=== PATIENT | male | born 1980 | race Caucasian/White ===

== ENCOUNTER 2017-02-09 11:46 | Emergency (ER) | payer OTHER ==
[2017-02-09 11:58] VITALS: BP 128/74
--- NOTE | 2017-02-09 12:07 | UC ---
Ear Complaint HPI - HPI Summary HPI Summary: Pt presents with right ear muffled. He tells me that for the past 1-1.5 weeks he has had sinus symptoms and a dry cough. Over the last 2 days he has noticed his right ear becoming more muffled and mildly painful. He denies fever, chills , SOB, ST, chest pain, abdominal pain, N/V/d/C - History of Current Complaint Chief Complaint: UCEar Stated Complaint: EAR PAIN Time Seen by Provider: 02/09/17 12:06 Hx Obtained From: Patient Onset/Duration: Gradual Onset Severity Initially: Mild Severity Currently: Mild - Allergies/Home Medications Allergies/Adverse Reactions: Allergies Allergy/AdvReac Type Severity Reaction Status Date / Time No Known Allergies Allergy Verified 02/09/17 11:59 PMH/Surg Hx/FS Hx/Imm Hx Previously Healthy: Yes - Surgical History Surgical History: Yes Surgery Procedure, Year, and Place: ear tubes, tonsils - Family History Known Family History: Positive: None - Social History Occupation: Employed Full-time Lives: With Family Alcohol Use: Occasionally Alcohol Amount: 2 times a week Substance Use Type: None Smoking Status (MU): Never Smoked Tobacco - Immunization History Most Recent Tetanus Shot: 03/2012 Review of Systems Constitutional: Negative Skin: Negative Eyes: Negative ENT: Ear Ache, Sinus Congestion Respiratory: Cough Cardiovascular: Negative Gastrointestinal: Negative All Other Systems Reviewed And Are Negative: Yes Physical Exam Triage Information Reviewed: Yes Appearance: Well-Appearing, Well-Nourished Vital Signs: Initial Vital Signs Temp 97.5 F 02/09/17 11:55 Pulse 70 02/09/17 11:55 Resp 16 02/09/17 11:55 BP 128/74 02/09/17 11:55 Pulse Ox 100 02/09/17 11:55 Vital Signs Reviewed: Yes Eyes: Positive: Conjunctiva Clear. Negative: Conjunctiva Inflamed, Discharge ENT: Positive: Pharynx normal, Nasal congestion, TMs normal, Uvula midline, Other - Whisper test muffled in right ear compared to left. Right ear canal with erythema and mild purulent discharge. No edema or facial swelling. Auricle and tragus NTTP.. Negative: Pharyngeal erythema, TM bulging, TM dull, TM red, Tonsillar swelling, Tonsillar exudate, Hoarse voice, Sinus tenderness Neck: Positive: Supple, Nontender, No Lymphadenopathy Respiratory: Positive: Chest non-tender, Lungs clear, Normal breath sounds, No respiratory distress, No accessory muscle use Cardiovascular: Positive: RRR, No Murmur, Pulses Normal Neurological: Positive: Alert Psychological: Positive: Age Appropriate Behavior Skin: Negative: rashes Ear Complaint Course/Dx - Course Course Of Treatment: Otitis externa - Cipro otic BID. Cough and sinusitis - likely viral and pt reports they are improving - Differential Dx/Diagnosis Differential Diagnosis/HQI/PQRI: Cerumen Impaction, Foreign Body, Otitis Externa , Otitis Media, Perforated TM, Trauma, URI Provider Diagnoses: Otitis externa right ear. Cough. Sinusitis Discharge - Discharge Plan Condition: Stable Disposition: HOME Prescriptions: Ciprofloxacin HCl (Otic) [Ciprofloxacin 0.2% EAR DROPS] 0.2 % RIGHT EAR BID #1 bottle Patient Education Materials: Otitis Externa (ED) Referrals: Anju Mantilla MD [Primary Care Provider] - Additional Instructions: If you develop a fever, SOB, chest pain, new or worsening symptoms - please call your PCP or go to the ED. 1) Cipro ear drops. One drop to right ear TWICE a day for 5 days.
== END 2017-02-09 12:20 | disposition home or self-care (01) ==
LOC: UCEAST 11:46
DX: H60.91 Unspecified otitis externa, right ear (principal); R05 Cough; J32.9 Chronic sinusitis, unspecified
CPT/HCPCS: 99202; G0463

== ENCOUNTER 2017-02-19 16:47 | Emergency (ER) | payer OTHER ==
[2017-02-19 16:56] VITALS: BP 129/86
--- NOTE | 2017-02-19 17:33 | UC ---
Ear Complaint HPI - HPI Summary HPI Summary: Patient presents with an unremarkable past medical history. He presents with complaints of right ear pain, and a sensation that he has his hand covering his ear, and left sided throat pain. He states he was seen 02.09 and RX ear drops he states he has used all of them and no improvement. He denies any injury, trauma, canal drainage, headache, fever, or chills. He states he is able to swallow his own secretions, speak, eat and drink. - History of Current Complaint Chief Complaint: UCEar Stated Complaint: ear ache, and sore throat Time Seen by Provider: 02/19/17 17:12 Hx Obtained From: Patient Onset/Duration: Gradual Onset, Lasting Weeks Severity Initially: Mild Severity Currently: Moderate Aggravating Factors: Nothing Associated Signs/Symptoms: Positive: URI Symptoms - Allergies/Home Medications Allergies/Adverse Reactions: Allergies Allergy/AdvReac Type Severity Reaction Status Date / Time No Known Allergies Allergy Verified 02/19/17 16:56 PMH/Surg Hx/FS Hx/Imm Hx Previously Healthy: Yes - Surgical History Surgical History: Yes Surgery Procedure, Year, and Place: ear tubes, tonsils - Family History Known Family History: Positive: None - Social History Occupation: Employed Full-time Lives: Alone Alcohol Use: None Alcohol Amount: 2 times a week Substance Use Type: None Smoking Status (MU): Never Smoked Tobacco - Immunization History Most Recent Influenza Vaccination: declined Most Recent Tetanus Shot: 03/2012 Review of Systems Constitutional: Negative Skin: Negative Eyes: Negative ENT: Sore Throat, Ear Ache Respiratory: Negative Cardiovascular: Negative Gastrointestinal: Negative Genitourinary: Negative Motor: Negative Neurovascular: Negative Musculoskeletal: Negative Neurological: Negative Psychological: Negative Is Patient Immunocompromised?: No All Other Systems Reviewed And Are Negative: Yes Physical Exam Triage Information Reviewed: Yes Appearance: Well-Appearing Vital Signs: Initial Vital Signs Temp 97.7 F 02/19/17 16:51 Pulse 64 02/19/17 16:51 Resp 20 02/19/17 16:51 BP 129/86 02/19/17 16:51 Pulse Ox 100 02/19/17 16:51 Vital Signs Reviewed: Yes Eye Exam: Normal ENT Exam: Normal ENT: Positive: TM bulging, TM dull, TM red Neck exam: Normal Neck: Positive: 1 Respiratory Exam: Normal Cardiovascular Exam: Normal Abdominal Exam: Normal Neurological Exam: Normal Skin Exam: Normal Ear Complaint Course/Dx - Course Course Of Treatment: Patient presents with an unremarkable past medial history. He has had persisent complaints of right ear with decreased hearing. He has completed a course of antibiotics, and no improvement. He denies any canal drainage, or ear pain. He is going to be treated with oral antibiotics, and I recommend that he follow up with ENT. Clinical findings reveal erythma, with dull light cone reflex findings consistent with otitis media. He verbalized understanding of and in agreement with the discharge plan. - Differential Dx/Diagnosis Differential Diagnosis/HQI/PQRI: Otitis Media Provider Diagnoses: otitis media Discharge - Discharge Plan Condition: Stable Disposition: HOME Prescriptions: Amoxicillin/Clavulanate TAB* [Augmentin TAB 875*] 875 mg PO BID #20 tab Patient Education Materials: Otitis Media (ED) Referrals: Anju Mantilla MD [Primary Care Provider] - Joey Benavidez MD [Medical Doctor] -
== END 2017-02-19 17:28 | disposition home or self-care (01) ==
LOC: UCEAST 16:47
DX: H66.91 Otitis media, unspecified, right ear (principal); R07.0 Pain in throat
CPT/HCPCS: 99212; G0463

== ENCOUNTER 2017-10-31 12:05 | Emergency (ER) | payer OTHER ==
[2017-10-31 12:41] VITALS: BP 122/71
[2017-10-31] MEDS ORDERED: Acetaminophen TAB* 325 MG PO ONE (14:06)
--- NOTE | 2017-10-31 14:45 | ED ---
Laceration/Wound HPI - HPI Summary HPI Summary: 37 yr old male with the complaint of cut to left palmar surface just proximal to the 5th MP area. Injury occurred on tailgait of truck, just prior to arrival here. The patient has no prior injury to this hand. No numbness or weakness in right hand. - History of Current Complaint Stated Complaint: LEFT HAND INJURY - W/C Time Seen by Provider: 10/31/17 13:13 Pain Intensity: 5 - Allergy/Home Medications Allergies/Adverse Reactions: Allergies Allergy/AdvReac Type Severity Reaction Status Date / Time No Known Allergies Allergy Verified 10/31/17 12:33 Home Medications: Home Medications Acetaminophen TAB* [Tylenol TAB*] 975 mg PO ONCE PRN 10/31/17 [History Confirmed 10/31/17] Esomeprazole Magnesium [Nexium 24Hr] 20 mg PO DAILY 10/31/17 [History Confirmed 10/31/17] PMH/Surg Hx/FS Hx/Imm Hx Endocrine/Hematology History: Denies: Hx Diabetes, Hx Thyroid Disease Cardiovascular History: Denies: Hx Hypertension Respiratory History: Denies: Hx Asthma, Hx Chronic Obstructive Pulmonary Disease (COPD) GI History: Denies: Hx Ulcer - Surgical History Surgery Procedure, Year, and Place: ear tubes, tonsils Infectious Disease History: No Infectious Disease History: Denies: Hx Hepatitis, Hx Human Immunodeficiency Virus (HIV), Traveled Outside the [place] in Last 30 Days - Family History Known Family History: Positive: None - Social History Occupation: Employed Full-time Alcohol Use: Occasionally Alcohol Amount: 2 times a week Substance Use Type: Reports: None Smoking Status (MU): Never Smoked Tobacco Review of Systems Constitutional: Negative Positive: Other - laceration to right hand 2cm All Other Systems Reviewed And Are Negative: Yes Physical Exam Triage Information Reviewed: Yes Vital Signs On Initial Exam: Initial Vitals Temp Pulse Resp BP Pulse Ox 97.8 F 69 18 122/71 98 10/31/17 12:35 10/31/17 12:35 10/31/17 12:35 10/31/17 12:35 10/31/17 12:35 Vital Signs Reviewed: Yes Appearance: Positive: Well-Appearing, No Pain Distress Skin: Positive: Other - 2 cm laceration right palm Eyes: Positive: EOMI Neck: Positive: Nontender Respiratory/Lung Sounds: Positive: Other - speaks full sentence, and without any difficulty. Non labored breathing. Cardiovascular: Positive: Pulses are Symmetrical in both Upper and Lower Extremities - good radial pulse and cap refill Abdomen Description: Positive: Nontender Musculoskeletal: Positive: Normal, Other - intact sensation and strength in left 5th digit. Neurological: Positive: Sensory/Motor Intact, Alert, Oriented to Person Place, Time, CN Intact II-III Psychiatric: Positive: Normal - Waqas Coma Scale Best Eye Response: 4 - Spontaneous Best Motor Response: 6 - Obeys Commands Best Verbal Response: 5 - Oriented Coma Scale Total: 15 Procedures - Laceration/Wound Repair 1 Location: upper extremity Description: Irregular Anesthesia: Local, 1.0% Length, Depth and Shape: 2 cm laceration irregular Betadine Prep?: Yes Irrigated w/ Saline (ccs): 500 - no FB Laceration/Wound Explored: clean Closure: Single Layer Suture Type: Prolene Number of Sutures: 2 Layer Closure?: No Sterile Dressing Applied?: Yes Diagnostics - Vital Signs Vital Signs Temp Pulse Resp BP Pulse Ox 10/31/17 12:35 97.8 F 69 18 122/71 98 - Laboratory Lab Statement: Any lab studies that have been ordered have been reviewed, and results considered in the medical decision making process. Laceration Repair Course/Dx - Course Course Of Treatment: 37 yr old male with the complaint of laceration hand. Plan DC home after repair of laceration. - Clinical Impression Provider Diagnoses: Laceration of hand Discharge - Sign-Out/Discharge Documenting (check all that apply): Patient Departure All imaging exams completed and their final reports reviewed: No Studies - Discharge Plan Condition: Good Disposition: HOME Patient Education Materials: Laceration (ED) Referrals: Anju Mantilla MD [Primary Care Provider] - 11/10/17 Additional Instructions: Sutures out in 10 days. - Billing Disposition and Condition Condition: GOOD Disposition: Home
== END 2017-10-31 14:48 | disposition home or self-care (01) ==
LOC: UCCORT 12:05
DX: S61.412A Laceration without foreign body of left hand, initial encounter (principal); W45.8XXA Other foreign body or object entering through skin, initial encounter; W22.8XXA Striking against or struck by other objects, initial encounter; Y92.9 Unspecified place or not applicable
CPT/HCPCS: 12001; 99212; A9270-GY; G0463

== ENCOUNTER 2018-09-18 10:36 | Emergency (ER) | payer OTHER ==
[2018-09-18 11:10] VITALS: BP 134/91
[2018-09-18] MEDS ORDERED: Tetracaine 0.5% OPTH.SOL 4 ML* 1 DROP BTL ONE (11:12)
[2018-09-18] MEDS ORDERED: Fluorescein Sodium TOPICAL* 1 MG TEST STRIP OPHTHALMIC ONE (11:12)
--- NOTE | 2018-09-18 11:18 | UC ---
Eye Complaint HPI - HPI Summary HPI Summary: per triage, THIS MORNING AT WORK PT GOT SOMETHING IN HIS EYE. 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 HE FLUSHED IT OUT AT WORK BUT STILL FEELS LIKE SOMETHING IN THE EYE. STATES VERY SENSITIVE TO SUNLIGHT. 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 No contact use. - History of Current Complaint Chief Complaint: UCEye Stated Complaint: WC-RT EYE INJURY Time Seen by Provider: 09/18/18 11:01 Hx Obtained From: Patient Onset/Duration: Sudden Onset Timing: Constant Pain Intensity: 4 Aggravating Factor(s): Light, Blinking Associated Signs And Symptoms: Positive: Photophobia. Negative: Drainage ( Purulent), Vision Impairment Right, Fever, Swelling - Risk Factors Globe Rupture Risk Factors: Negative Acute Glaucoma Risk Factors: Negative Optic Artery Occlusion Risk Factors: Negative - Allergies/Home Medications Allergies/Adverse Reactions: Allergies Allergy/AdvReac Type Severity Reaction Status Date / Time coconut Allergy Severe throat Verified 09/18/18 11:03 swelling PMH/Surg Hx/FS Hx/Imm Hx GI/ History: Gastroesophageal Reflux - Surgical History Surgical History: Yes Surgery Procedure, Year, and Place: ear tubes, tonsils - Family History Known Family History: Positive: None - Social History Alcohol Use: Occasionally Alcohol Amount: 2 times a week Substance Use Type: None Smoking Status (MU): Never Smoked Tobacco - Immunization History Most Recent Influenza Vaccination: declined Most Recent Tetanus Shot: 03/2012 Review of Systems All Other Systems Reviewed And Are Negative: No Constitutional: Negative: Fever, Chills Skin: Negative: Rash Eyes: Positive: Drainage - R is tearing, Eye Redness - R, Photophobia - R ENT: Negative: Sore Throat, Ear Ache, Sinus Congestion Neurological: Negative: Headache Physical Exam Triage Information Reviewed: Yes Appearance: Well-Appearing Vital Signs: Initial Vital Signs Temp 97.2 F 09/18/18 11:04 Pulse 60 09/18/18 11:04 Resp 15 09/18/18 11:04 BP 134/91 09/18/18 11:04 Pulse Ox 99 09/18/18 11:04 Vital Signs Reviewed: Yes Eyes: Positive: Other: - Visual acuity with glasses in nurse note and reviewed. No periorbital edema or rash. no auricular adenopathy. Conjunctive OD injected and OS is clear. Tiny central corneal FB OD. AC's clear. PERRL, EOMI. Lids everted OD and no FB's ENT: Negative: Nasal drainage Neck: Positive: Supple Neurological: Positive: Alert Psychological: Positive: Age Appropriate Behavior Skin Exam: Normal Skin: Negative: Rashes Eye Complaint Course/Dx - Course Course Of Treatment: PROCEDURE BY THIS PA: TETRACAINE OD. QTIP MOISTENED WITH TETRACAINE USE TO SWEEP AWAY FB AND NO RUST RING POST. EYE STAINED AND NO PERFORATION, ULCERATION OR DENDRITES. PT TOLERATED WELL. - Differential Dx/Diagnosis Provider Diagnosis: Corneal FB (foreign body) Discharge - Sign-Out/Discharge Documenting (check all that apply): Patient Departure All imaging exams completed and their final reports reviewed: No Studies - Discharge Plan Condition: Stable Disposition: HOME Prescriptions: Erythromycin OPTH OINT* [Erythromycin 0.5% OPTH OINT*] 1 applic RIGHT EYE TID 5 Days #1 ophth.oint Patient Education Materials: Eye Foreign Body (ED) Referrals: Matty David MD [Medical Doctor] - Additional Instructions: FOLLOW UP WITH OPHTHALMOLOGY IN 3 DAYS FOR A RECHECK OR SOONER IF WORSE. - Billing Disposition and Condition Condition: STABLE Disposition: Home
[2018-09-18] MEDS ORDERED: Erythromycin OPTH OINT* APPLIC OINT RIGHT EYE ONE (11:30)
[2018-09-18] MEDS ORDERED: Ibuprofen ADULT LIQ* 600 MG/30 ML UDC PO ONE (11:30)
== END 2018-09-18 11:45 | disposition home or self-care (01) ==
LOC: UCCORT 10:36
DX: T15.01XA Foreign body in cornea, right eye, initial encounter (principal); X58.XXXA Exposure to other specified factors, initial encounter; Y93.89 Activity, other specified; Y92.89 Other specified places as the place of occurrence of the external cause; Y99.0 Civilian activity done for income or pay
CPT/HCPCS: 65220; 99213; A9270-GY; G0463